=== PATIENT | female | born 1990 | race Caucasian/White ===

== ENCOUNTER 2020-08-28 12:13 | Outpatient (NON) | payer BC, SELFPAY ==
[2020-08-29 13:59] LABS: SARS-CoV-2 RNA PCR Negative
== END 2020-08-28 12:14 ==
PROVIDERS: PCP Family Medicine; Visit Provider Family Medicine
DX: Z20.828 Contact with and (suspected) exposure to other viral communicable diseases (principal); R05 Cough
CPT/HCPCS: 87635; C9803; U0003

== ENCOUNTER 2020-12-23 13:29 | Emergency (ER) | payer BC, SELFPAY ==
--- NOTE | ~2020-12-23 | CT_ITS ---
EXAMINATION: CT abdomen pelvis w con DATE: 12/23/2020 16:39 INDICATION: Constipation. Weight loss. Nausea. TECHNIQUE: Computed tomography (CT) of the abdomen and pelvis was performed with 100 mL Omnipaque 350 intravenous contrast. Automated exposure control and iterative reconstruction technique were employe d. The dose-length product was 392.35 mGy-cm. COMPARISON: None. FINDINGS: The visualized portions of the lung bases are clear without pneumonia or pleural effusion. The heart size is normal. No pericardial effusion. The liver, gallbladder, spleen, pancreas, adrenal glands, and kidneys are normal. There is an intrauterine device in expected position. There are no di lated loops of bowel. The appendix is normal. There are no pathologically enlarged lymph nodes. There is no free intraperitoneal fluid. There is mild lumbar spondylosis. IMPRESSION: 1. No etiology for the patient's symptoms. Reviewed, dictated and finalized at location A. N [facility]ENDER
[2020-12-23 14:16] VITALS: BP 128/87; PULSE 85; RESP 18; TEMP 36.6; O2SAT 97
[2020-12-23 14:36] LABS: Basophils Percent Auto 0.4 % (0.2-1.2); Eosinophils Absolute Auto 0.2 K/mm3 (0-0.3); Eosinophils Percent Auto 2.5 % (0-4.4); Hematocrit 43.3 % (37.0-47.0); Hemoglobin 14.8 g/dL (12.0-15.0); Immature Granulocyte Absolute 0.02 K/mm3 (0.00-0.031); Immature Granulocyte Percent A 0.3 % (0-0.5); Lymphocytes Percent Auto 29.6 % (18.3-44.2); Mean Corpuscular HGB Conc 34.2 g/dl (32-36); Mean Corpuscular Hemoglobin 29.8 pg (26-34); Mean Corpuscular Volume 87.1 fl (80-100); Mean Platelet Volume 9.5 fl (7.4-10.4); Monocytes Absolute Auto 0.4 K/mm3 (0.1-0.6); Monocytes Percent Auto 5.5 % (2.6-8.5); Neutrophils Absolute Auto 4.4 K/mm3 (1.3-6.7); Neutrophils Percent Auto 61.7 % (45.5-73.1); Platelet Count Result 291 k/mm3 (150-375); Red Blood Count 4.97 M/mm3 (4.2-5.4); Red Cell Distribution Width 11.7 % (11.5-14.5); White Blood Count 7.1 K/mm3 (4.5-10.0)
[2020-12-23 14:51] LABS: Alanine Aminotransferase 18 U/L (4-35); Albumin Level 4.1 g/dL (3.5-5.1); Alkaline Phosphatase 77 U/L (38-126); Anion Gap 7 mmol/L (8-16); Aspartate Amino Transferase 21 U/L (14-36); Bilirubin,Total 0.3 mg/dL (0.2-1.3); Blood Urea Nitrogen 11 mg/dL (7-17); Calcium 8.8 mg/dL (8.4-10.2); Carbon Dioxide 28 mmol/L (22-30); Chloride 104 mmol/L (98-107); Estimated CRCL calculation 82 ml/min; Estimated Glomerular Filt Rate > 60; Glucose 110 mg/dL (65-105); Lipase 84 U/L (23-300); Potassium 3.9 mmol/L (3.4-5.0); Sodium 139 mmol/L (137-145)
[2020-12-23 15:08] LABS: Add Urine Microscopic? YES; Appearance Urine Clear (Clear); Bilirubin Urine Negative (Negative); Blood Urine Negative (Negative); Color Urine Yellow (Yellow); Glucose Urine UA Negative (Negative); Ketones Urine 1+ mg/dL (Negative); Leukocyte Esterase Ur Trace LEU/UL (Negative); Mucus Urine Heavy /lpf; Nitrate Urine Negative (Negative); Protein Urine 1+ mg/dL (Negative); Squamous Epithelial Cell Urine Many /hpf (Few); WBC Urine 0-3 /hpf
[2020-12-23 15:37] VITALS: BP 134/84
--- NOTE | 2020-12-23 15:40 | PC.NURSE ---
warm blankets to LLE per MD order. patient resting on stretcher. on monitor. call light in reach. updated on current treatment plan.
[2020-12-23 15:46] VITALS: BP 132/83
[2020-12-23 16:01] VITALS: BP 124/85
[2020-12-23 16:16] VITALS: BP 128/76
--- NOTE | 2020-12-23 16:43 | PC.NURSE ---
patient back from CT.
--- NOTE | 2020-12-23 16:58 | PC.NURSE ---
CT resulted. waiting for further orders from provider vs disposition.
--- NOTE | 2020-12-23 17:01 | ED.GENADULT ---
HPI - General Adult General Chief complaint: Abdominal Pain Stated complaint: constipation/abd pain Time Seen by Provider: 12/23/20 15:23 Source: patient Mode of arrival: ambulatory Limitations: no limitations History of Present Illness HPI narrative: Patient presents with chief complaint of constipation issues that began at 2019 they became better and have since worsened over the past 6 months. Patient states she takes 3 Colace daily and still feels that she needs to take magnesium citrate in order to have a bowel movement. Patient states when she does take the magnesium citrate she does have soft normal color stools in small amounts but feels that she has more stool to pass. Patient states that she has been on Linzess prescribed by her primary care provider without notable improvement. Patient states that she has used an enema but she just passes the enema without large quantity of stools. Patient states she does not have hard stools in her rectal area. Patient states that she does not feel the need to pass a bowel movement even after she has gone a couple days which she feels is abnormal. Patient states that she saw a GI specialist in 2019 but has not seen one in the past year. Patient states she also has some epigastric discomfort today along with a tightness sensation in her lower abdomen. Patient states that she also has some nausea. Patient states she has a history of GERD. She denies fever, chills, vomiting, bloody stools, abdominal distention, excess flatulence. Related Data Home Medications Medication Instructions Recorded Confirmed levonorgestrel 20 mcg/24 hours (6 1 device I-UTERINE ONCE 05/22/20 10/31/20 yrs) 52 mg intrauterine device Allergies Allergy/AdvReac Type Severity Reaction Status Date / Time No Known Allergies Allergy Unknown Verified 10/31/20 15:43 Review of Systems Review of Systems: Narrative: CONSTITUTIONAL: Denies fever, chills, or sweats. EYES: Denies visual changes, redness, or discharge. ENT: Denies rhinorrhea, congestion, sore throat, or otalgia. CARDIOVASCULAR: Denies chest pain, palpitations, or edema. RESPIRATORY: Denies cough or dyspnea. GASTROINTESTINAL: Reports abdominal tightening and pressure sensation, nausea, denies vomiting, or diarrhea. GENITOURINARY: Denies dysuria or hematuria. SKIN: Denies rash or itching. MUSCULOSKELETAL: Denies back pain, joint pain, or myalgia. NEUROLOGIC: Denies headache, numbness, dizziness, or weakness. PSYCHIATRIC: Denies anxiety or depression. [facility] Social History Social History Smoking status: Never smoker Alcohol intake: never Exam Narrative: Exam Narrative: GENERAL: Well-appearing, well-nourished. Does not appear to be in any discomfort. HEAD: Normocephalic, atraumatic. EYES: PERRLA and EOMI. NECK: Supple. No adenopathy or masses. No vertebral tenderness or loss of ROM. CHEST: Clear to auscultation. No respiratory distress. No wheezes rales or rhonchi HEART: Regular rate and rhythm. Normal peripheral pulses. ABDOMEN: Soft, nontender, nondistended, normal active bowel sounds. No bruises noted. EXTREMITIES: No acute changes in ROM. No edema. SKIN: Warm, dry, no rash. NEURO: No focal deficits. Alert and oriented x3. PSYCH: Normal mood and affect. Course Vital Signs Vital signs: Vital Signs Temperature 97.9 F 12/23/20 14:16 Pulse Rate 85 12/23/20 14:16 Respiratory Rate 18 12/23/20 14:16 Blood Pressure 128/87 12/23/20 14:16 Pulse Oximetry 97 12/23/20 14:16 Temperature 97.9 F 12/23/20 14:16 Pulse Rate 85 12/23/20 14:16 Respiratory Rate 18 12/23/20 14:16 Blood Pressure 128/76 12/23/20 16:16 Pulse Oximetry 97 12/23/20 14:16 Medical Decision Making MDM Narrative Medical decision making narrative: Patient CT does not show any etiology to describe her findings. Patient will be given GI cocktail. Patient instructed to follow-up wi
[2020-12-23] MEDS: BELLADONNA ALK/PHENOB ELIX 10 ML, MAG HYDROX/ALUMINUM HYD/SIMETH 30 ML, LIDOCAINE HCL 2... PO (17:18)
== END 2020-12-23 17:24 | disposition home or self-care (01) ==
PROVIDERS: Emergency Provider Emergency Medicine; PCP Family Medicine
DX: K59.00 Constipation, unspecified (principal); K21.9 Gastro-esophageal reflux disease without esophagitis
CPT/HCPCS: 36415; 74177; 80053; 81001; 81025; 83690; 85025; 99284; A9270; Q9967

== ENCOUNTER 2023-03-29 12:22 | Emergency (ER) | payer BC, SELFPAY ==
[2023-03-29 12:28] VITALS: BP 127/92; PULSE 76; RESP 16; TEMP 36.4; O2SAT 100
--- NOTE | 2023-03-29 12:31 | ED.URI ---
HPI - URI/Sore Throat General Chief Complaint: Upper Respiratory Infection Stated Complaint: fatigue,bodyache,nausea,dizzy Time Seen by Provider: 03/29/23 12:31 Source: patient and RN notes reviewed History of Present Illness HPI Narrative: Patient is a 41-year-old female presents to urgent care with complaints of fatigue, body aches, sinus congestion, nausea and intermittent dizziness. Patient states that she has good days and bad days and it started approximately 10 days ago. Patient states that she has been taking Tylenol p.m. intermittently. Patient currently denies any nausea or dizziness. States that she has not had a fever. No other acute complaints. Acute distress noted. Patient aware of the plan of care. Some parts of this dictation were generated by voice recognition software and may contain typographical and/or grammatical inaccuracies. Related Data Home Medications Medication Instructions Recorded Confirmed levonorgestrel 21 mcg/24 hours (8 1 device intrauterine ONCE 05/22/20 05/03/22 yrs) 52 mg intrauterine device (Mirena) Allergies Allergy/AdvReac Type Severity Reaction Status Date / Time No Known Allergies Allergy Unknown Verified 05/03/22 11:49 Review of Systems Review of Systems: CONSTITUTIONAL: Denies fever, chills, or sweats. EYES: Denies visual changes, redness, or discharge. ENT: Reports of intermittent sinus congestion, sinus pressure ears CARDIOVASCULAR: Denies chest pain, palpitations, or edema. RESPIRATORY: Denies cough or dyspnea. GASTROINTESTINAL: Denies abdominal pain, nausea, vomiting, or diarrhea. GENITOURINARY: Denies dysuria or hematuria. SKIN: Denies rash or itching. MUSCULOSKELETAL: Denies back pain, joint pain, or myalgia. NEUROLOGIC: Reports of headache and intermittent dizziness All other systems reviewed are negative, except as documented in HPI. [facility] Past Medical History Medical History Overweight (BMI 25.0-29.9) Family History Family History Father Depression Anxiety Social History Social History (Updated 05/03/22 @ 11:48 by Yareli Mack CMA) Smoking status: Former smoker Smoking end date: 02/02/17 Alcohol intake: current Alcohol use details: Rarely Substance use type: does not use Comments At the time of my signature, I reviewed and agree with the nursing past medical, surgical, social, and family history. There is no relevant family history pertinent to the patient complaint. Exam Narrative: GENERAL: This is a well-nourished, well-developed patient, in no apparent distress. HEAD: normocephalic, atraumatic. Mild reported frontal sinus pressure EYES: PERRL. Sclera clear/white. Vision is grossly intact. EARS: External ears normal, auditory canals clear and without drainage, TMs normal without perforation. Hearing grossly intact. NOSE: External nose normal with no obvious nasal discharge, nares without redness, no rhinorrhea. THROAT: Mucous membranes moist, posterior pharynx clear. Moderate postnasal drainage NECK: Neck supple, non-tender without lymphadenopathy RESPIRATORY: Clear to auscultation. Breath sounds equal bilaterally. No wheezes, rales, or rhonchi. SKIN: warm, intact with no suspicious lesions or rash, good texture and turgor. NEURO: awake, alert, and oriented to person, place and time. There were no obvious focal neurologic abnormalities. EXTREMITIES: No clubbing, cyanosis, or edema. Course Course Level of Care: Express Care Visit Vital Signs Vital signs: Vital Signs Temperature 97.6 F 03/29/23 12:28 Pulse Rate 76 03/29/23 12:28 Respiratory Rate 16 03/29/23 12:28 Blood Pressure 127/92 H 03/29/23 12:28 Pulse Oximetry 100 03/29/23 12:28 Temperature 97.6 F 03/29/23 12:28 Pulse Rate 76 03/29/23 12:28 Respiratory Rate 16 03/29/23 12:28 Blood Pressure 127/92 H 03/29/23 12:28
== END 2023-03-29 13:01 | disposition home or self-care (01) ==
PROVIDERS: Emergency Provider Nurse Practitioner Family; PCP Family Medicine
DX: J32.9 Chronic sinusitis, unspecified (principal); R53.83 Other fatigue; Z20.822 Contact with and (suspected) exposure to COVID-19; Z87.891 Personal history of nicotine dependence
CPT/HCPCS: 87426; 99213; C9803; G0463

== ENCOUNTER 2024-11-21 10:18 | Emergency (ER) | payer BC, SELFPAY ==
[2024-11-21 11:29] VITALS: BP 118/66; PULSE 107; RESP 16; TEMP 36.7; O2SAT 97
--- NOTE | 2024-11-21 11:55 | ED.URI ---
HPI - URI/Sore Throat General Chief Complaint: Upper Respiratory Infection Stated Complaint: BODY ACHES/CHILLS/CONGESTION/LUNG PAIN/COUGH Time Seen by Provider: 11/21/24 11:56 Source: patient, RN notes reviewed and old records reviewed Mode of arrival: ambulatory Limitations: no limitations History of Present Illness HPI Narrative: 34-year-old female presents to express Care who presents to express care with complaints of cough, chills, fevers,nasal drainage, body aches for 2 day duration. Patient reports some chest soreness with coughing. Patient reports that she had COVID first part of October. Patient has been taking Tylenol and Ibuprofen for her symptoms. MD elicited complaint: fever, cough, rhinorrhea, nasal congestion and other (body aches) Pertinent past history: other (COVID first part october) Onset (ago): day(s) (2) Severity: moderate Able to tolerate fluids by mouth: Yes Treatments prior to arrival: acetaminophen and ibuprofen Related Data Home Medications ?Medication ?Instructions ?Recorded ?Confirmed ?Last Taken ?Type levonorgestrel (Mirena) 1 device intrauterine ONCE 05/22/20 05/03/22 Unknown History Allergies Allergy/AdvReac Type Severity Reaction Status Date / Time No Known Allergies Allergy Unknown Verified 10/08/24 08:58 Review of Systems Review of Systems: CONSTITUTIONAL: Reports malaise, chills, sweats, or fever. EYES: Denies visual changes, redness, or discharge. ENT: Reports rhinorrhea, congestion, sinus pain,no otalgia and no sore throat. CARDIOVASCULAR: Denies chest pain, palpitations, or edema. RESPIRATORY: Reports cough.? Denies dyspnea. soreness to chest with coughing GASTROINTESTINAL: Denies abdominal pain, nausea, vomiting, diarrhea SKIN: Denies rash or itching. MUSCULOSKELETAL: Reports myalgia. NEUROLOGIC: Denies headache. All systems reviewed & are unremarkable except as noted in HPI and below PMFSH Past Medical History Medical History Overweight (BMI 25.0-29.9) Family History Family History Father Depression Anxiety Social History Social History Smoking status: Former smoker Smoking end date: 02/02/17 Alcohol intake: current Alcohol use details: Rarely Substance use type: does not use Comments At time of signature, agree with nursing past medical, surgical, social and family history. There is no relevant family history pertinent to the presenting complaint Exam Narrative: GENERAL: Well-appearing, well-nourished, and in no acute distress. HEAD: Normocephalic EYES: PERRLA, conjunctivae clear ENT: Nares clear, turbinates edematous and erythematous, clear discharge, sinus pressure, Mucous membranes moist. TM pearly carr with dull light reflex bilaterally; no tragal tenderness. Oropharynx erythematous without lesions. Tonsils not enlarged and without exudate, no drooling, no hoarseness, no trismus, uvula midline.PND NECK: Supple. No lymphadenopathy CHEST: Clear to auscultation, breath sounds equal. No wheezing, rhonchi, rales, or stridor. No respiratory distress, speaks in full sentences.cough dry SAO2 97% on room air HEART: Regular rate and rhythm. No murmur heard. SKIN: Warm, dry, no rash. NEURO: Alert and oriented x3. PSYCH: Normal mood and affect Course Course Emergency Course: Patient is aware of diagnosis, understands and agrees to treatment plan.? Anticipatory guidance given.? Patient agrees to follow-up as directed and is aware of reasons to seek care at the emergency department. Portions of this record may have been created with voice recognition software Level of Care: Express Care Visit Vital Signs Vital signs: Vital Signs Temperature 36.7 C 11/21/24 11:29 Pulse Rate 107 H 11/21/24 11:29 Respiratory Rate 16 11/21/24 11:29 Blood Pressure 118/66 11/21/24 11:29 Pulse Oximetry 97 11/21/24 11:29 Temperature 36.7 C 11/21/24 11:29 Pulse Rate 107 H 11/21/24 11:29 Respiratory Rate 16 11/21/24 11:29 Blood Pressure 118/66 11/21/24 11:29 Pulse Oximetry 97 11/21/24 11:29 Oxygen Delivery Room Air 11/21/24 11:30 Reviewed MDM - URI/Sore Throat MDM Narrative Medical decision making narrative: Differential diagnosis considered: Jacobs virus, strep pharyngitis, allergic rhinitis, upper respiratory tract infection, sinusitis, rhinosinusitis, nasopharyngitis. viral pharyngitis, otitis media, otitis externa, pneumonia, bronchitis, viral cough syndrome, viral syndrome, and influenza.? Exam findings show no acute concerns or changes; patient is non-toxic appearing and is in no distress.? Patient is appropriate for outpatient treatment and follow-up. Differential Diagnosis Differential diagnosis: Likely upper respiratory infection, sinusitis, viral infection and influenza Medical Records Attestation: I reviewed the patient's medical records. Lab Data Attestation: I reviewed the patient's lab results. Lab results narrative: influenza A positive, Influenza B negative Labs: Lab Results 11/21/24 Range/Units 12:20 POC Influenza A Ag Positive (Negative) POC Influenza B Ag Negative (Negative) Critical Care Time Critical Care Time Critical Care Time: No Discharge Plan Discharge Clinical Impression: Influenza A Patient Disposition: Home, Self-Care Condition: Stable Instructions: Oseltamivir (By mouth), Influenza (ED) Additional Instructions: Increase fluids especially juices and water [id number] cough and cold medicine of your choice for your symptoms Zyrtec Claritin orally Anita daily include plain Sudafed in a.m. and early p.m. heat to the face 20-30 minutes 4-6 times a day for pain Salt water gargles, throat lozenges or throat sprays as desired alternate Tylenol and ibuprofen for fevers and pain monitor for fevers You must be fever free for 24 hours without use of Tylenol or ibuprofen before you can return to work, on average it is normally around to 5 days from start of symptoms If your symptoms persist, change or worsen significantly before you can contact your personal physician then please, without delay, go to the emergency department for further evaluation. Follow-up with PCP in 7-10 days or sooner if needed Patient Language: Slovenian Prescriptions: New oseltamivir [Tamiflu] 75 mg capsule 75 mg PO BID 5 Days Qty: 10 0RF oseltamivir [Tamiflu] 75 mg capsule 75 mg PO Q12H 5 Days Qty: 10 0RF No Action Mirena 20 mcg/24 hours (5 yrs) 52 mg intrauterine device 1 device I-UTERINE ONCE Rx Instructions: as a single dose Paxlovid 300 mg (150 mg x 2)-100 mg tablets,dose pack See Rx Instructions PO .COMPLEX Qty: 30 0RF Rx Instructions: take TWO 150 mg tablets of nirmatrelvir with ONE 100 mg tablet of ritonavir twice daily for 5 days PO Follow-up/Referrals: Gianluca Langston MD [Primary Care Provider] - Time of Disposition: 12:13 [place] Coma Scale Eyes: Open Verbal: Oriented and Alert Motor: Follows Commands Diane Coma Total Score: 15
[2024-11-21 12:22] LABS: EDINFLUASCREEN Positive (Negative); EDINFLUBSCREEN Negative (Negative)
== END 2024-11-21 12:15 | disposition home or self-care (01) ==
PROVIDERS: Emergency Provider Registered Nurse; PCP Family Medicine
DX: J10.1 Influenza due to other identified influenza virus with other respiratory manifestations (principal); Z87.891 Personal history of nicotine dependence
CPT/HCPCS: 87804; 99213; G0463